=== PATIENT | male | born 1935 | race Caucasian/White ===

== ENCOUNTER → 2017-08-27 | Outpatient (CLI) | payer MEDICARE, BC ==
[~2017-08-27] MED LIST: ALBUTEROL SULFAT3 M3 IH; ASPIRIN E.C. 8181 MG PO; CENTRUM SILVER1 TA2 PO; CEPHALEXIN500 M1 PO; GALANTAMINE HYDR8 MG PO; PERCOCET 325 MG1 TA2 PO; PRILOSEC 20MG20 MG PO; TIKOSYN0.25 MG PO; VENTOLIN0.09 MG IH; WARFARIN2 MG PO; ZOCOR 40MG40 MG PO
== END ==
LOC: COL.RAD 12:04
DX: S00.03XA Contusion of scalp, initial encounter (principal); J32.0 Chronic maxillary sinusitis; G31.89 Other specified degenerative diseases of nervous system

== ENCOUNTER → 2018-01-13 | Outpatient (CLI) | payer MEDICARE, BC | LOC: COL.RAD 07:17 | DX: K57.30 Diverticulosis of large intestine without perforation or abscess without bleeding (principal); M43.17 Spondylolisthesis, lumbosacral region; M47.816 Spondylosis without myelopathy or radiculopathy, lumbar region; J43.9 Emphysema, unspecified; R91.1 Solitary pulmonary nodule | CPT/HCPCS: Q9967 ==

== ENCOUNTER 2019-10-12 16:12 | Inpatient (IN) | payer MEDICARE, BC ==
[~2019-10-12] VITALS: Ht 180.3 cm; Wt 83.1 kg
[2019-10-16] VITALS (213 sets, daily range): BP systolic 135–184; BP diastolic 69–96; PULSE 59–81; TEMP 97.8–98.3; O2SAT 93–100
[2019-10-16 11:09] LABS: ALBUMIN 3.9 gm/dL (3.5-5.0); CALCIUM 9.2 mg/dL (8.4-10.2); CREATININE, serum 0.83 (0.66-1.25); POTASSIUM 4.2 mmol/L (3.4-5.0)
[2019-10-16] MEDS ORDERED: MIRAPEX0.25 MG PO (11:17)
[2019-10-16] MEDS ORDERED: SINEMET 25/101 UDTAB PO (11:18)
[2019-10-16] MEDS ORDERED: IPRATROPIUM BROM3 M1 IH (11:19)
[2019-10-16] MEDS ORDERED: ASMANEX TW0.22 MG/A1 IH (11:21)
[2019-10-16] MEDS ORDERED: RAZADYNE ER24 MG PO (11:22)
[2019-10-16] MEDS ORDERED: NAMENDA 10MG TA10 MG PO (11:23)
[2019-10-16] MEDS ORDERED: TIAZAC180 MG PO (11:29)
[2019-10-16] MEDS ORDERED: COUMADIN 1MG1 MG/TAB PO ×2 (11:42→11:43)
[2019-10-16] MEDS ORDERED: FLONASEALLERGY NS (11:43)
[2019-10-16] MEDS ORDERED: MUCUS RELIEF400 M1 PO (11:44)
[2019-10-16] MEDS ORDERED: LEADER CLE17 GM/Dose PO (11:45)
[2019-10-16] MEDS ORDERED: COMBIRESP IH (11:45)
--- NOTE | 2019-10-16 12:11 | NUR ---
Admission complete. Pt rests in bed. Pt is cooperative and calm. Oriented to self only. at bedside. Side rails up x2. Will continue to monitor. Call light within reach.
--- NOTE | 2019-10-16 12:45 | NUR ---
Pt restless in bed and pulled IV out. Coband pressure dressing placed. Will restart IV prior to going to OR. There will be a significant delay in pt's case due to generator maintenance and physician schedule conflict. in room. Pt HOB increased for comfort. denies further needs at this time. Call light within reach.
--- NOTE | 2019-10-16 14:00 | NUR ---
Pt continues to be restless off and on. Attempts to get up on own. Pt is easily redirected. Lights dimmed to see if pt will nap. Side rails up x2. Call light within reach. in room.
--- NOTE | 2019-10-16 15:30 | NUR ---
Pt sitting at edge of bed, wanting to get up and "go to my room." Attemps at reorientating pt unsuccessful. Pt up to recliner with 2 assist to see if this will help with comfort and restlessness. Pt stays in recliner for approximatly 15 minutes before becoming aggitated and wanting to get up. Pt assisted into wheel chair to go for walk in hospital hallway. Nurse remains with pt.
--- NOTE | 2019-10-16 16:30 | NUR ---
Nurse has been ambulatine pt via wheel chair for an hour. Pt calm during this. here to see pt. Pt brought back to room. Short visit with physician, pt and taken place. OR ready for pt. Pt assisted back to cart. 20 guage IV placed to right forearm 1 attempt successful. Coband placed around IV to keep secure and from being pulled out. Pt taken to OR by Shirley GUAN.
[2019-10-16 19:12] LABS: HEMATOCRIT 49.8 % (42.0-52.0); HEMOGLOBIN 15.6 g/dl (13.5-18.0); MEAN CELL VOLUME 94 fl (80.0-100.0); MEAN CORPUSCULAR HEMOGLOBIN 29 pg (27.0-31.0); MEAN CORPUSCULAR HGB CONC 31 g/dl (33.0-37.0); MEAN PLATELET VOLUME 9.5 fl (7.4-10.4); PLATELET COUNT 165 K/mm3 (130-400)
[2019-10-16 19:21] LABS: INR 1.1 (0.8-3.0); PROTHROMBIN TIME 12.3 SECONDS (9.7-12.8)
[2019-10-16 19:26] LABS: BILIRUBIN,TOTAL 0.8 mg/dL (0.0-1.0); CALCIUM 9.1 mg/dL (8.4-10.2); CREATININE, serum 0.99 (0.66-1.25); POTASSIUM 5.2 mmol/L (3.4-5.0); TOTAL PROTEIN 7.1 gm/dL (6.4-8.2)
[2019-10-16 19:45] LABS: ANISOCYTOSIS 1+; BAND 2 % (0-10); LYMPHOCYTE 3 % (20.0-51.0); NEUTROPHILS 93 % (42.0-75.2); PLATELET ESTIMATE NORMAL (NORMAL)
[2019-10-17] VITALS (595 sets, daily range): BP systolic 121–138; BP diastolic 63–80; PULSE 66–78; TEMP 97–99; O2SAT 85–99
[2019-10-17 00:57] LABS: CALCIUM 9.1 mg/dL (8.4-10.2); CREATININE, serum 0.81 (0.66-1.25); POTASSIUM 4.7 mmol/L (3.4-5.0)
[2019-10-17 05:11] LABS: BASO % 0.1 % (0.0-2.0); HEMATOCRIT 48.4 % (42.0-52.0); HEMOGLOBIN 15.6 g/dl (13.5-18.0); LYMPH # 0.3 (1.2-3.4); LYMPH % 1.7 % (20.0-51.0); MEAN CELL VOLUME 91 fl (80.0-100.0); MEAN CORPUSCULAR HEMOGLOBIN 29 pg (27.0-31.0); MEAN CORPUSCULAR HGB CONC 32 g/dl (33.0-37.0); MEAN PLATELET VOLUME 10.1 fl (7.4-10.4); MONO # 0.8 (0.1-0.6); MONO % 4.8 % (1.7-9.3); PLATELET COUNT 166 K/mm3 (130-400); RED BLOOD COUNT 5.34 M/mm3 (4.20-5.60); REDCELL DISTRIBUTION WIDTH-CV 13.8 % (11.5-14.5)
[2019-10-17 05:21] LABS: BILIRUBIN,TOTAL 1.1 mg/dL (0.0-1.0); CALCIUM 9.2 mg/dL (8.4-10.2); CREATININE, serum 0.75 (0.66-1.25); POTASSIUM 4.5 mmol/L (3.4-5.0)
--- NOTE | 2019-10-17 06:24 | NUR ---
PT restless throughout night, mittens in place due to patient reaching for and grabbing at trach site despite reoriention and direction not to do so. PT does not follow commands, consistently biting at and trying to pull off mittens.
--- NOTE | 2019-10-17 07:00 | NUR ---
Report given to FREIDA Hood.
--- NOTE | 2019-10-17 07:20 | NUR ---
Received bedside report from FREIDA Norris. Patient is resting in bed. Call light and bedside table are within reach. Will continue to monitor patient throughout shift.
--- NOTE | 2019-10-17 10:42 | NUR ---
Cinthia Booth [facility] and I met with , Nelly Lam, in ICU this morning to talk about options or choices for ongoing care. openly admits that he has been declining significantly at home over the last few months. 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 Intubation was not possible around the mass. Once biopsy report is back the family would like to hear from oncology about what treatment options would realistically be available. states "I am not ready for him to but I don't want him to suffer needlessly". She explored with us the options of residential care vs in home care--which would be very difficult to manage even with in home care staff, vs hospice house. Aggressive cares with chemotherapy, further surgeries are not really seen by her as options. Might consider radiation therapy if recommended. Struggling with no visitors at local nursing homes at a time when "family should be available" but also struggling with the concept of hospice and dying because it has a negative stigma. Please see palliative care consult.
--- NOTE | 2019-10-17 13:20 | NUR ---
Lead Press Operator met with patient's , Nelly and Palliative RN, Genevieve to discuss discharge planning and goals of care. Nelly reports she and patient live here in [place] and patient's primary care physician is Dr. Klein. Patient has DPOA- located in [facility] which designates Nelly (ph#[phone]) as primary and patient's daughter Hilary as secondary. Patient has four children. Vadim ([place], [place]), Cem ([place]), Hilary ([place]), and Romain ([place], [place]). Patient had [facility] and private duty services at home. Genevieve opened discussion about goals of care. Nelly reports she does not want chemotherapy for patient but could be open to radiation treatment if recommended by Oncology. Nelly advised she would like to know what the results of this biopsy are before deciding on any kind of treatment plan. Genevieve discussed supportive care vs hospice care. Nelly reports having some difficulty with the thought of going on hospice. Hospitalist arrived during meeting to join discussion on goals of care. Hospitalist advised that patient is likely has too high of needs to go home. Nelly is interested in [facility], [facility], and [facility]. Nelly is struggling with the thought of not being able to visit patient if he goes to a usp. Genevieve and ELVIS discussed the option of going to the usp on hospice and discussed the four local options, [facility], [facility], [facility], and [facility]. Nelly advised she needs to discuss these things with the four kids but wants SW to send referrals to [facility], [facility], and [facility]. ELVIS contacted Shannon at [facility], Deandre at [facility], and Shirley at [facility] then faxed referral. Deandre advised they cannot take new trachs. Shirley reports they are likely able to accept. ELVIS will continue to follow.
--- NOTE | 2019-10-17 14:00 | NUR ---
Roofer Assistant received a phone call from patient's , Nelly who advised she is not ready to give up on the possibility of patient returning home. Nelly inquired about how much in home assistance she would be able to receive from [facility]. ELVIS contacted Jean who advised they can do 24 hour care but trach and peg care would need to be done by and RN which is $65/visit. ELVIS provided update to FREIDA Vallejo. ELVIS to continue to follow.
--- NOTE | 2019-10-17 14:45 | NUR ---
Cinthia HUERTA and I talked with daughter Hilary briefly by phone this afternoon with an attempt to go over options with her. She reports that she and her three brothers will talk this evening about various options and she would rather wait until after that meeting to talk with us. She was advised that the two local nursing homes are not able to take Mr Lam, [facility] is likely able to take. Pathology is not expected back until late tomorrow at the earliest. Family would like to hear what oncology might offer for treatment and then will make a clearer decision. We will talk again at 1pm on 10/18.
--- NOTE | 2019-10-17 14:49 | NUR ---
Director Of Career Resources and palliative RN, Genevieve contacted patient's daughter, Hilary (ph#[phone]) to discuss goals of care and discharge planning. SW advised Hilary that [facility] and [facility] cannot meet patient's needs. Hilary asked about other nursing homes in the area and SW encouraged Hilary to review Medicare.gov list of nursing homes. SW also advised that [facility] is likely able to accept. Genevieve adivsed Hilary that patient returning home is not recommended at this time. Genevieve would like to talk with her siblings and will follow up. SW to continue to follow.
--- NOTE | 2019-10-17 16:03 | NUR ---
Report given to FREIDA Salas, medical floor, on patient going to room 2845.
--- NOTE | 2019-10-17 16:45 | NUR ---
Pt arrived to floor from ICU. Pt resting comfortably in bed at this time with his eyes closed. IV to right forearm patent and without s/s of complications. PEG tube dressing CDI with abdominal binder in place. Pt denies any other needs at this time. Pts at bedside. Fall precautions in place. Bed alarm on. Call light within reach. Will continue to monitor.
--- NOTE | 2019-10-17 18:59 | NUR ---
Pt has had uneventful shift since transfer from ICU. Pt has rested comfortably in bed without complaints. No s/s of pain noted. INT to right forearm patent and free of complications. PEG tube dressing CDI. at bedside. Pt and deny any other needs at this time. Fall precautions in place. Bed alarm on. Call light within reach.
--- NOTE | 2019-10-17 19:34 | NUR ---
Report given to FREIDA Camargo
[2019-10-18 00:34] VITALS: BP 122/63; PULSE 84; TEMP 98.4
--- NOTE | 2019-10-18 02:57 | NUR ---
PRN DOSE OF MORPHINE GIVEN TO PATIENT BECAUSE HE APPEARS AGITATED, GETTING MITS OFF, AND PULLING AT TRACH COLLAR OXYGEN.
[2019-10-18 04:55] VITALS: BP 128/77; PULSE 78; TEMP 99
--- NOTE | 2019-10-18 05:10 | NUR ---
PATIENT HAS HAD A RESTFUL NIGHT. RESPIRATORY THERAPY CLEANED THE TRACH AND DID TRACH CARE X2 TIMES DURING THE SHIFT. PATIENT SEEMED TO BE GETTING AGITATED AND PULLING AT THE MITS AND GETTING ON OFF, THE OXYGEN AROUND THE TRACH, SO A PRN DOSE OF MORPHINE WAS GIVEN AND THAT HELPED WITH THE PATIENTS AFFECT. PATIENT HAS HAD INCONTINENT CARE PROVIDED. PEG TUBE HAS NO RESIDUAL WHEN CHECKED. WILL REPORT OFF TO DAY SHIFT.
[2019-10-18 08:00] VITALS: BP 124/64; PULSE 87; TEMP 98.1
[2019-10-18 09:01] LABS: CALCIUM 9.3 mg/dL (8.4-10.2); CREATININE, serum 1.12 (0.66-1.25); POTASSIUM 4.7 mmol/L (3.4-5.0)
[2019-10-18 09:08] LABS: BASO % 0.3 % (0.0-2.0); EOS % 0.1 % (0-4.0); GRAN # 10.1 (1.4-6.5); HEMATOCRIT 51.9 % (42.0-52.0); HEMOGLOBIN 16.5 g/dl (13.5-18.0); LYMPH # 0.4 (1.2-3.4); LYMPH % 3.3 % (20.0-51.0); MEAN CELL VOLUME 93 fl (80.0-100.0); MEAN CORPUSCULAR HEMOGLOBIN 30 pg (27.0-31.0); MEAN CORPUSCULAR HGB CONC 32 g/dl (33.0-37.0); MEAN PLATELET VOLUME 10.2 fl (7.4-10.4); MONO # 0.8 (0.1-0.6); MONO % 6.8 % (1.7-9.3); PLATELET COUNT 170 K/mm3 (130-400); RED BLOOD COUNT 5.58 M/mm3 (4.20-5.60); REDCELL DISTRIBUTION WIDTH-CV 14.1 % (11.5-14.5)
--- NOTE | 2019-10-18 10:52 | NUR ---
Pt assessment completed and charted. Medications administered per MAR by peg tube. Cardizem on hold, lopressor given IV, HR and BP stable. Pt is alert. No residual noted, pt tolerated well. Minimal old drainage noted to gauze surrounding peg tube. Pt has RFA INT IV that flushes w/o complications. Pt has trach in place, suctioning provided by this nurse, nothing noted but pt is occasionally coughing up some phlegm/mucous. Trach mask in place providing 8L O2 w/ humidifier, cleaned and new mask placed. Pt satting well, sats checked at 96%. Pt doesn't appear to be in distress. Soft mitt restraints in place to keep patient from pulling trach tubes and peg tube. Oral care provided. at bedside, hospitalist notified. No further needs at this time.
[2019-10-18 11:08] LABS: MAGNESIUM 2.3 mg/dL (1.6-2.3); PHOSPHOROUS 3.3 mg/dL (2.5-4.5)
[2019-10-18 11:15] LABS: PRE ALBUMIN 16.6 mg/dL (17.6-36.0)
--- NOTE | 2019-10-18 11:30 | NUR ---
PATIENT CURRENTLY ON 8LPM/33% FIO2, VIA TRACH COLLAR AND HUMIDIFICATION. PATIENT IS NOT ACTUALLY GETTING 8LPM, BUT WE NEED TO APPLY 8LPM TO GET THE HUMIDITY THROUGH THE LONG HUMIDITY TUBE TO THE PATIENT TO THIN SECRETIONS. PATIENT ONLY REQUIRES 3LPM IF HE WERE TO TRAVEL FOR PROCEDURE. HUMIDIFICATION SETUP AT 8LPM=33%FIO2 TRACH COLLAR AT 3LPM=32%FIO2
--- NOTE | 2019-10-18 11:55 | NUR ---
First visit from the workforce advisor. No needs right now.
[2019-10-18 12:17] VITALS: BP 150/57; PULSE 80; TEMP 100
[2019-10-18] MEDS ORDERED: IPRATROPIUM BROM3 M1 IH (13:31)
[2019-10-18] MEDS ORDERED: ROXANOL 20MG20 MG/ML PO (13:32)
[2019-10-18] MEDS ORDERED: LORAINT SL (13:33)
[2019-10-18] MEDS ORDERED: DULCOLAX S10 MG/SUPP RC (13:34)
[2019-10-18] MEDS ORDERED: TRANSDERM-0.5 MG/21 TD (13:34)
[2019-10-18] MEDS ORDERED: ZOFRAN ODT4 MG PO (13:35)
[2019-10-18] MEDS ORDERED: LIQUIFILM TEARS15 ML OU (13:35)
--- NOTE | 2019-10-18 13:44 | NUR ---
The patient is to tentatively discharge today, 10/17 to the [facility]. ELVIS faxed discharge orders, DNR, and DPOA-HC paperwork to Shirley at [facility]. EMS to transport the patient at 1400. The team, [facility] and the patient's were in agreeance with the time. ELVIS presented the IM form to the patient's , Nelly. She understood the form and signed. A copy was provided and the original was placed in the chart. There are no additional needs at this time.
== END 2019-10-18 14:30 | disposition hospice, inpatient (51) | DRG 11 ==
LOC: INPTSU 10-16 09:35 → SURG 10-16 11:30 → ICU 10-16 19:36 → MEDICAL 10-17 16:43
PROVIDERS: Hospitalist; Internal Medicine; Nurse Practitioner Family; Physician Assistant; Surgery; ADMIT Otolaryngology
PROC: 0B110F4 Bypass Trachea to Cutaneous with Tracheostomy Device, Open Approach (ICD-10-PCS; principal; 2019-10-16 11:30)
PROC: 0CBV8ZX Excision of Left Vocal Cord, Via Natural or Artificial Opening Endoscopic, Diagnostic (ICD-10-PCS; 2019-10-16 11:30)
PROC: 0DH63UZ Insertion of Feeding Device into Stomach, Percutaneous Approach (ICD-10-PCS; 2019-10-16 11:30)
DX: C32.0 Malignant neoplasm of glottis (principal); J96.01 Acute respiratory failure with hypoxia; F02.81 Dementia in other diseases classified elsewhere, unspecified severity, with behavioral disturbance; I48.91 Unspecified atrial fibrillation; J44.9 Chronic obstructive pulmonary disease, unspecified; G20 Parkinson's disease; E87.5 Hyperkalemia; K21.9 Gastro-esophageal reflux disease without esophagitis; Z66 Do not resuscitate; Z51.5 Encounter for palliative care; G47.30 Sleep apnea, unspecified; E78.5 Hyperlipidemia, unspecified; Z79.01 Long term (current) use of anticoagulants; Z96.641 Presence of right artificial hip joint; Z95.0 Presence of cardiac pacemaker; Z87.891 Personal history of nicotine dependence
CPT/HCPCS: 99222-AI; 99232-AI; 99239; J0360; J0690; J1100; J2270; J2405; J2704; J3010; J7030; J7120